=== PATIENT | female | born 1940 | race Caucasian/White ===

== ENCOUNTER 2020-10-27 13:22 | Emergency (ER) | payer MEDICARE ==
[~2020-10-27 13:22] MED LIST: ACTOS30 MG PO; ASPIRIN 325MG325 MG PO; ASPIRIN EC81 MG PO; ASPIRIN325 MG PO; B-121000 MCG PO; BENICAR40 MG PO; BENTYL 10MG CAP10 MG PO; CALTRATE 600 +1 EAC1 PO; CRESTOR20 MG PO; DIFICID 200 MG200 MG PO; ELIQUIS 5 MG TAB5 MG PO; GLUCOPHAGE1000 MG PO; GLUCOTROL XL 5 M5 MG PO; HYDRALAZINE HCL25 MG PO; IMODIUM CAP 2 MG2 MG PO; JANUVIA100 MG PO; LANTUS SOL100 UNIT/1 SC; LANTUS SOL100 UNIT/1 SQ; LEXAPRO TAB 1010 MG PO; LEXAPRO10 MG PO; LINZESS72 MCG PO; LOPRESSOR 25 MG25 MG PO; METOPROLOL TART25 MG PO; MUCINEX600 MG PO; MYRBETRIQ50 MG PO; NEURONTIN 300300 MG PO; NEURONTIN600 MG PO; NEXIUM40 MG PO; NORVASC 5 MG TAB5 MG PO; NORVASC5 MG PO; OMNICEF 300 MG300 MG PO; PROTONIX 40 MG40 M1 PO; PROTONIX40 MG PO; PROVENTIL HFA6.7 GM INH; VALSARTAN-HCTZ1 EAC3 PO; VANCOMYCIN HCL125 MG PO; ZOFRAN ODT 4 MG4 MG PO
[2020-10-27 13:53] LABS: HEMOGLOBIN 13.1 gm/dl (12.3-15.3); RED BLOOD COUNT 4.16 M/UL (4.00-5.10); WHITE BLOOD COUNT 4.8 K/UL (4.5-11.0)
[2020-10-27 14:38] LABS: BUN/CREATININE RATIO 20 (0-10)
[2020-10-27] MEDS ORDERED: PYRIDIUM200 MG PO (17:28)
[2020-10-27] MEDS ORDERED: CEFUROXIME500 MG PO (17:28)
== END 2020-10-27 18:06 | disposition home or self-care (01) ==
LOC: ER1 13:22
PROVIDERS: Physician Assistant
DX: R10.32 Left lower quadrant pain (principal); R82.81 Pyuria; E11.9 Type 2 diabetes mellitus without complications; I10 Essential (primary) hypertension; E78.5 Hyperlipidemia, unspecified; Z90.49 Acquired absence of other specified parts of digestive tract
CPT/HCPCS: 36415; 80053; 81001; 83690; 85025; 96374; 96375; 99284; J2270; J2405; J7030; Q9967

== ENCOUNTER 2021-01-26 21:10 | Emergency (ER) | payer MEDICARE ==
[~2021-01-26 21:10] MED LIST changes: +CEFUROXIME500 MG PO; +PYRIDIUM200 MG PO
[2021-01-26 22:26] LABS: HEMOGLOBIN 12.7 gm/dl (12.3-15.3); RED BLOOD COUNT 3.98 M/UL (4.00-5.10); WHITE BLOOD COUNT 4.1 K/UL (4.5-11.0)
[2021-01-27] MEDS ORDERED: PROVENTIL HFA6.7 GM INH (00:09)
[2021-01-27] MEDS ORDERED: MEDROL4 MG PO (00:09)
[2021-01-27] MEDS ORDERED: OMNICEF 300 MG300 MG PO (00:09)
== END 2021-01-27 08:32 | disposition home or self-care (01) ==
LOC: ER1 21:10
PROVIDERS: Physician Assistant Medical
DX: J40 Bronchitis, not specified as acute or chronic (principal); E11.9 Type 2 diabetes mellitus without complications; I10 Essential (primary) hypertension; Z86.711 Personal history of pulmonary embolism; E78.5 Hyperlipidemia, unspecified; Z20.822 Contact with and (suspected) exposure to COVID-19
CPT/HCPCS: 0240U; 36600; 71045; 80053; 82803; 83605; 85025; 87040; 94664; 96374; 99285; J2930

== ENCOUNTER 2021-02-22 21:17 | Emergency (ER) | payer MEDICARE ==
[~2021-02-22 21:17] MED LIST changes: +MEDROL4 MG PO
[2021-02-22 22:22] LABS: HEMOGLOBIN 12.4 gm/dl (12.3-15.3); RED BLOOD COUNT 3.94 M/UL (4.00-5.10); WHITE BLOOD COUNT 3.5 K/UL (4.5-11.0)
== END 2021-02-23 08:32 | disposition home or self-care (01) ==
LOC: ER1 21:17
PROVIDERS: Emergency Medicine
DX: R10.9 Unspecified abdominal pain (principal); R05 Cough; R06.02 Shortness of breath; I10 Essential (primary) hypertension; E11.9 Type 2 diabetes mellitus without complications; E78.5 Hyperlipidemia, unspecified; Z90.49 Acquired absence of other specified parts of digestive tract; Z90.710 Acquired absence of both cervix and uterus; Z90.89 Acquired absence of other organs
CPT/HCPCS: 71045; 80053; 81001; 83690; 85025; 99285; Q9967

== ENCOUNTER 2021-04-14 20:51 | Emergency (ER) | payer MEDICARE ==
[2021-04-14 21:55] LABS: HEMOGLOBIN 12.2 gm/dl (12.3-15.3); RED BLOOD COUNT 3.88 M/UL (4.00-5.10); WHITE BLOOD COUNT 3.7 K/UL (4.5-11.0)
== END 2021-04-15 02:07 | disposition home or self-care (01) ==
LOC: ER1 20:51
PROVIDERS: Physician Assistant
DX: N39.0 Urinary tract infection, site not specified (principal); I12.9 Hypertensive chronic kidney disease with stage 1 through stage 4 chronic kidney disease, or unspecified chronic kidney disease; E11.22 Type 2 diabetes mellitus with diabetic chronic kidney disease; N18.9 Chronic kidney disease, unspecified
CPT/HCPCS: 80053; 81001; 82550; 82553; 83690; 83874; 84484; 85025; 87086; 93005; 99284

== ENCOUNTER 2021-06-10 15:15 | Observation (INO) | payer MEDICARE, OTHER ==
[~2021-06-10] VITALS: Ht 162.6 cm; Wt 83.9 kg
[2021-06-10 15:50] LABS: HEMOGLOBIN 11.6 gm/dl (12.3-15.3); RED BLOOD COUNT 3.61 M/UL (4.00-5.10); WHITE BLOOD COUNT 5.8 K/UL (4.5-11.0)
[2021-06-10 16:16] LABS: BUN/CREATININE RATIO 14 (0-10)
[2021-06-11 07:55] LABS: HEMOGLOBIN 11.2 gm/dl (12.3-15.3); RED BLOOD COUNT 3.6 M/UL (4.00-5.10); WHITE BLOOD COUNT 5.1 K/UL (4.5-11.0)
[2021-06-11] MEDS ORDERED: AUGMENTIN 875-1 EACH PO (17:28)
[2021-06-11] MEDS ORDERED: FLORASTOR250 MG PO (17:28)
--- NOTE | 2021-06-12 00:42 | NUR ---
WHEN STARTING DISCHARGE WENT TO TALK TO PATIENT ABOUT WHO WAS COMING TO PICK HER UP, PATIENT STATES SHE HAS NO ONE TO COME PICK HER UP, STATED THE DR TOLD HER HE WOULD GET THE AMBULANCE SERVICE TO TAKE HER IF NEEDED, NOTIFIED [facility], CALLED EMS AT 2008, AT 2054 FAXED PAPER WORK TO EMS, 2099 EFRAIN CALLED GOT INFORMATION STATES THE PATIENT WILL HAVE TO SIGN A ABN AND WILL BE BILLED. ASK HIM TO FIND OUT HOW MUCH THE PATIENT WOULD BE BILLED. 2109 EFRAIN FROM EMS CALLED BACK STATES THE PATIENT BILL WILL BE A FEW DOLLARS SHY OF 800.00. WENT AND DISCUSSED THIS WITH THE PAITENT STATES SHE CANT AFFORD THIS BILL. NOTIFIED DR JACOBO OF [facility]OVE WELL. HE STATED OK.
[2021-06-12 06:45] LABS: HEMOGLOBIN 11.1 gm/dl (12.3-15.3); RED BLOOD COUNT 3.5 M/UL (4.00-5.10)
[2021-06-12] MEDS ORDERED: MIRALAX17 GM PO (14:54)
== END 2021-06-12 19:36 | disposition home or self-care (01) ==
LOC: ER1 15:15 → CDU 17:25 → MED SURG 4 20:06
PROVIDERS: Emergency Medicine; ADMIT Internal Medicine
DX: J18.9 Pneumonia, unspecified organism (principal); F10.129 Alcohol abuse with intoxication, unspecified; E11.9 Type 2 diabetes mellitus without complications; I10 Essential (primary) hypertension; E78.5 Hyperlipidemia, unspecified; E87.2 Acidosis; K21.9 Gastro-esophageal reflux disease without esophagitis; D64.9 Anemia, unspecified; D53.9 Nutritional anemia, unspecified; E66.01 Morbid (severe) obesity due to excess calories; Z68.31 Body mass index [BMI] 31.0-31.9, adult; Z88.7 Allergy status to serum and vaccine; Z20.822 Contact with and (suspected) exposure to COVID-19; Y90.6 Blood alcohol level of 120-199 mg/100 ml
CPT/HCPCS: 36415; 36600; 51701; 70450; 71045; 80053; 80307; 81001; 82550; 82553; 82728; 82803; 82962; 83605; 83690; 83735; 83874; 84443; 84484; 85025; 85379; 85610; 85730; 86140; 87040; 93005; 94664; 94760; 96374; 96375; 97162; 97530-GP-CQ; 99285; G0378; G0480; J1650; J2405; J2543; J3411; J3475; J7030; U0002

== ENCOUNTER 2021-09-02 17:36 | Emergency (ER) | payer MEDICARE ==
[~2021-09-02 17:36] MED LIST changes: +AUGMENTIN 875-1 EACH PO; +FLORASTOR250 MG PO; +MIRALAX17 GM PO
[2021-09-02 18:05] LABS: HEMOGLOBIN 11.5 gm/dl (12.3-15.3); RED BLOOD COUNT 3.77 M/UL (4.00-5.10); WHITE BLOOD COUNT 3.8 K/UL (4.5-11.0)
[2021-09-02 18:44] LABS: BUN/CREATININE RATIO 21 (0-10)
== END 2021-09-03 08:40 | disposition home or self-care (01) ==
LOC: ER1 17:36
PROVIDERS: Physician Assistant
DX: S30.0XXA Contusion of lower back and pelvis, initial encounter (principal); S70.01XA Contusion of right hip, initial encounter; M51.36 Other intervertebral disc degeneration, lumbar region; M48.061 Spinal stenosis, lumbar region without neurogenic claudication; E78.5 Hyperlipidemia, unspecified; Z20.822 Contact with and (suspected) exposure to COVID-19; I10 Essential (primary) hypertension; E11.9 Type 2 diabetes mellitus without complications; Z79.82 Long term (current) use of aspirin; W19.XXXA Unspecified fall, initial encounter; Y92.009 Unspecified place in unspecified non-institutional (private) residence as the place of occurrence of the external cause
CPT/HCPCS: 51702; 71045; 72131; 72192; 73502; 80053; 81001; 82550; 82553; 83874; 84484; 85025; 87086; 93005; 99284; U0002

== ENCOUNTER 2021-09-18 17:26 | Emergency (ER) | payer MEDICARE ==
[2021-09-18] MEDS ORDERED: HYDROCODONE-AC1 EACH PO (22:07)
== END 2021-09-18 22:22 | disposition home or self-care (01) ==
LOC: ER1 17:26
DX: S09.90XA Unspecified injury of head, initial encounter (principal); S52.592A Other fractures of lower end of left radius, initial encounter for closed fracture; I10 Essential (primary) hypertension; S32.019A Unspecified fracture of first lumbar vertebra, initial encounter for closed fracture; E11.9 Type 2 diabetes mellitus without complications; M25.512 Pain in left shoulder; M25.522 Pain in left elbow; S29.012A Strain of muscle and tendon of back wall of thorax, initial encounter; W19.XXXA Unspecified fall, initial encounter; Z79.82 Long term (current) use of aspirin
CPT/HCPCS: 29125; 70450; 72125; 72128; 72131; 73030; 73080; 73110; 73130; 99284

== ENCOUNTER 2021-09-23 15:30 | Emergency (ER) | payer MEDICARE ==
[~2021-09-23 15:30] MED LIST changes: +HYDROCODONE-AC1 EACH PO
[2021-09-23 19:32] LABS: HEMOGLOBIN 12.1 gm/dl (12.3-15.3); RED BLOOD COUNT 3.93 M/UL (4.00-5.10); WHITE BLOOD COUNT 5.9 K/UL (4.5-11.0)
[2021-09-27] MEDS ORDERED: NORVASC10 MG PO (01:21)
== END 2021-09-23 22:56 | disposition home or self-care (01) ==
LOC: ER1 15:30
PROVIDERS: Emergency Medicine
DX: T85.848A Pain due to other internal prosthetic devices, implants and grafts, initial encounter (principal); M25.532 Pain in left wrist; M54.50 Low back pain, unspecified; E11.9 Type 2 diabetes mellitus without complications; I10 Essential (primary) hypertension; Z90.710 Acquired absence of both cervix and uterus; Z90.49 Acquired absence of other specified parts of digestive tract
CPT/HCPCS: 29125; 80053; 81001; 82550; 82553; 84484; 85025; 87086; 93005; 96374; 99284; J2405

== ENCOUNTER 2021-09-26 17:31 | Inpatient (IN) | payer MEDICARE ==
[~2021-09-26] VITALS: Ht 162.6 cm; Wt 100.0 kg
[~2021-09-26 17:31] MED LIST changes: -LANTUS SOL100 UNIT/1 SC
[2021-09-26 18:43] LABS: HEMOGLOBIN 12.2 gm/dl (12.3-15.3); RED BLOOD COUNT 3.93 M/UL (4.00-5.10)
[2021-09-26 18:44] LABS: WHITE BLOOD COUNT 3.7 K/UL (4.5-11.0)
[2021-09-26 19:22] LABS: BUN/CREATININE RATIO 26 (0-10)
[2021-09-27] MEDS ORDERED: NORVASC5 MG PO (01:21)
[2021-09-27] MEDS ORDERED: PROTONIX40 MG PO (01:26)
[2021-09-27] MEDS ORDERED: HYDROXYZINE HCL25 MG PO (01:27)
[2021-09-27 08:02] LABS: HEMOGLOBIN 12.1 gm/dl (12.3-15.3); RED BLOOD COUNT 3.93 M/UL (4.00-5.10)
[2021-09-27 08:09] LABS: WHITE BLOOD COUNT 4.7 K/UL (4.5-11.0)
[2021-09-27 08:42] LABS: BUN/CREATININE RATIO 27 (0-10)
[2021-09-27] MEDS ORDERED: HYDROCODON-ACE1 EAC4 PO (09:43)
[2021-09-27] MEDS ORDERED: ZINC50 M3 PO (09:45)
[2021-09-27] MEDS ORDERED: CETIRIZINE HCL10 MG PO (09:45)
[2021-09-27] MEDS ORDERED: MULTIVITAMIN1 EACH PO (09:46)
[2021-09-27] MEDS ORDERED: DRY EYE RELIEF15 ML OU (09:46)
[2021-09-30 04:07] LABS: BUN/CREATININE RATIO 16 (0-10)
[2021-09-30] MEDS ORDERED: HYDROCODON-ACE1 EAC4 PO (15:24)
[2021-09-30] MEDS ORDERED: LISINOPRIL10 MG PO (15:24)
[2021-09-30] MEDS ORDERED: METOPROLOL SUCC25 MG PO (15:24)
[2021-09-30] MEDS ORDERED: NEURONTIN600 MG PO (15:24)
[2021-09-30] MEDS ORDERED: CEFUROXIME500 MG PO (15:24)
[2021-09-30] MEDS ORDERED: IPRAT-ALBUT 0.5-3 ML NEB (15:24)
--- NOTE | 2021-10-01 02:02 | NUR ---
PT DISCHARGED TO [facility] VIA EMS. PT HAD NO COMPLAINTS, DENIED PAIN. PT WAS STABLE AND [facility]UES. VITALS WERE HEART RATE 76, RESPIRATIONS 18, OXYGEN SATURATION 98%, BLOOD PRESSURE 154/64 MAP 88. REHAB CALLED AND INFORMED OF PT LEAVING.
== END 2021-10-01 01:55 | DRG 177 ==
LOC: ER1 17:31 → PROG CARE 22:17 → CDU 22:17 → PROG CARE 09-27 00:41
PROVIDERS: Internal Medicine; Physician Assistant; ADMIT Family Medicine
DX: J69.0 Pneumonitis due to inhalation of food and vomit (principal); J96.01 Acute respiratory failure with hypoxia; S52.515A Nondisplaced fracture of left radial styloid process, initial encounter for closed fracture; S32.010A Wedge compression fracture of first lumbar vertebra, initial encounter for closed fracture; Z20.822 Contact with and (suspected) exposure to COVID-19; E78.5 Hyperlipidemia, unspecified; W01.0XXA Fall on same level from slipping, tripping and stumbling without subsequent striking against object, initial encounter; E66.9 Obesity, unspecified; D64.9 Anemia, unspecified; R53.81 Other malaise; I12.9 Hypertensive chronic kidney disease with stage 1 through stage 4 chronic kidney disease, or unspecified chronic kidney disease; N18.30 Chronic kidney disease, stage 3 unspecified; E11.22 Type 2 diabetes mellitus with diabetic chronic kidney disease; Z90.89 Acquired absence of other organs; Z90.49 Acquired absence of other specified parts of digestive tract; Z98.51 Tubal ligation status; Z79.899 Other long term (current) drug therapy; Z90.710 Acquired absence of both cervix and uterus; Z88.8 Allergy status to other drugs, medicaments and biological substances; Z68.37 Body mass index [BMI] 37.0-37.9, adult; Z79.82 Long term (current) use of aspirin; Z79.4 Long term (current) use of insulin
CPT/HCPCS: 0240U; 36415; 71045; 73110; 73522; 73700; 80048; 80053; 82962; 85025; 94640; 94760; 96374; 96375; 97110; 97162; 97166; 97530; 97530-GP-CQ; 99284; G0378; J0696; J1335; J1650; J2270; J2405; U0002